=== PATIENT | male | born 1980 | race Caucasian/White ===

== ENCOUNTER 2017-03-25 12:12 | Emergency (ER) | payer OTHER ==
[~2017-03-25] VITALS: Ht 177.8 cm; Wt 86.2 kg
[2017-03-25] MEDS ORDERED: SODIUM CHLORIDE 0.9% 1,000 ML IVB ONE (13:03)
[2017-03-25] MEDS ORDERED: ASPirin 81 mg TAB PO ONE (13:15)
[2017-03-25 14:04] LABS: Basophils # (auto) 0.1 uL; Basophils % (auto) 0.6 % (0.0-2.0); Eosinophils # (auto) 0.3 uL; Eosinophils % (auto) 3.2 % (0.0-7.0); Hematocrit 42.2 % (41.0-53.0); Hemoglobin 14.6 g/dL (13.5-17.5); Lymphocytes # (auto) 2.5 uL; Mean Corpuscular Hemoglobin 31.2 pg (28.0-32.0); Mean Corpuscular Hgb Conc. 34.6 g/dL (32.0-36.0); Mean Corpuscular Volume 90.3 fL (80.0-100.0); Mean Platelet Volume 8.1 fL (7.4-10.4); Monocytes # (auto) 0.7 uL; Monocytes % (auto) 8.2 % (0.0-12.0); Neutrophils # (auto) 5.6 uL; Platelet Count (auto) 335 10^3/uL (140-450); Red Cell Distribution Width 12.6 % (11.6-16.0); White Blood Cell 9.1 10^3/uL (4.4-10.8)
[2017-03-25 14:07] LABS: Albumin 3.6 g/dL (3.4-5.0); Anion Gap 12 (5-15); Aspartate Aminotransferase 95 U/L (15-37); BUN/Creatinine Ratio 12.2; Blood Urea Nitrogen 11 mg/dL (7-18); Calcium 8.3 mg/dL (8.5-10.1); Carbon Dioxide 22 mmol/L (21-32); Chloride 103 mmol/L (98-107); GFR African American 121 mL/min; GFR Non-African American 100 mL/min; Glucose 97 mg/dL (74-106); Sodium 137 mmol/L (136-145)
[2017-03-25 14:12] LABS: Alkaline Phosphatase 42 U/L (45-117); Bilirubin, Total 0.7 mg/dL (0.2-1.0); Total Protein 7.7 g/dL (6.4-8.2)
[2017-03-25 14:59] VITALS: BP 123/63
== END 2017-03-25 17:26 | disposition home or self-care (01) ==
LOC: ER 12:14
DX: R07.89 Other chest pain (principal); M32.9 Systemic lupus erythematosus, unspecified; R74.8 Abnormal levels of other serum enzymes; F17.210 Nicotine dependence, cigarettes, uncomplicated; Z88.0 Allergy status to penicillin; Z87.01 Personal history of pneumonia (recurrent)
CPT/HCPCS: 36415; 71020; 80053; 83735; 84443; 84484; 85025; 85379; 93005; 94761; 96360; 96361

== ENCOUNTER 2020-08-16 06:21 | Emergency (ER) | payer OTHER ==
[~2020-08-16] VITALS: Ht 177.8 cm; Wt 86.2 kg
[~2020-08-16 06:21] MED LIST: HYDR-392 PO; LISI30TA4 PO
[2020-08-16 07:40] LABS: Urine Bacteria NONE SEEN /hpf (None Seen); Urine Blood 3+ /uL (Negative); Urine Mucus FEW (None Seen); Urine Specific Gravity 1.021 (1.001-1.035); Urine WBC 12 /hpf (0 - 3)
[2020-08-16 08:21] LABS: Potassium 3.9 mmol/L (3.5-5.1)
[2020-08-16 08:27] LABS: Albumin 4.2 g/dL (3.4-5.0); Basophils # (auto) 0.1 10 ^3/uL (0-0.2); Basophils % (auto) 0.4 % (0.0-2.0); Bilirubin, Total 0.8 mg/dL (0.2-1.0); Calcium 9.2 mg/dL (8.5-10.1); Eosinophils # (auto) 0.4 10 ^3/uL (0-0.8); Eosinophils % (auto) 2.9 % (0.0-7.0); Lymphocytes # (auto) 2.2 10 ^3/uL (0.4-5.4); Lymphocytes % (auto) 15.4 % (10.0-50.0); Mean Corpuscular Hemoglobin 29.2 pg (28.0-32.0); Mean Corpuscular Volume 85.9 fL (80.0-100.0); Monocytes # (auto) 1.2 10 ^3/uL (0-1.3); Monocytes % (auto) 8.7 % (0.0-12.0); Neutrophils # (auto) 10.4 10 ^3/uL (1.6-8.6); Neutrophils % (auto) 72.6 % (37.0-80.0); Nucleated Red Blood Cells % 0.2 %; Platelet Count (auto) 319 10^3/uL (140-450); Red Blood Cells 5.47 10^6/uL (4.5-5.90); Total Protein 8.1 g/dL (6.4-8.2); White Blood Cell 14.4 10^3/uL (4.4-10.8)
[2020-08-16 10:38] VITALS: BP 130/88
[2020-08-16] MEDS ORDERED: TAMSULOSIN HYDROCHLORIDE 0.4 MG CAP PO ONE (11:00)
[2020-08-16] MEDS ORDERED: KETOROLAC TROMETH 30 MG/ML 1ML VIAL IV ONE (11:00)
[2020-08-16] MEDS ORDERED: SODIUM CHLORIDE 0.9% 1,000 ML IV ONE ×2 (11:00)
== END 2020-08-16 12:05 | disposition home or self-care (01) ==
LOC: ER 06:21
DX: N20.0 Calculus of kidney (principal); N39.0 Urinary tract infection, site not specified; I10 Essential (primary) hypertension
CPT/HCPCS: 36415; 74176; 80053; 81001; 83690; 85025; 96360; 99285; J7030

== ENCOUNTER 2021-10-12 13:56 | Emergency (ER) | payer OTHER ==
[~2021-10-12] VITALS: Ht 175.3 cm; Wt 73.9 kg
[2021-10-12 14:11] VITALS: BP 168/87
== END 2021-10-12 15:57 | disposition left against medical advice (07) ==
LOC: ER 13:56
DX: R10.9 Unspecified abdominal pain (principal); R19.7 Diarrhea, unspecified; Z53.21 Procedure and treatment not carried out due to patient leaving prior to being seen by health care provider

== ENCOUNTER 2021-11-30 21:20 | Emergency (ER) | payer OTHER ==
[~2021-11-30] VITALS: Ht 170.2 cm; Wt 65.8 kg
[2021-11-30] MEDS ORDERED: LORazepam 2MG/ML-1ML VIAL ONE (22:01)
[2021-11-30] MEDS ORDERED: LORazepam 2MG/ML-1ML VIAL IV ONE (22:15)
[2021-11-30 22:23] LABS: Basophils # (auto) 0.1 10 ^3/uL (0-0.2); Basophils % (auto) 0.5 % (0.0-2.0); Eosinophils # (auto) 0.3 10 ^3/uL (0-0.8); Eosinophils % (auto) 2.4 % (0.0-7.0); Hematocrit 42.3 % (41.0-53.0); Hemoglobin 14.5 g/dL (13.5-17.5); Mean Corpuscular Hemoglobin 29.5 pg (28.0-32.0); Mean Corpuscular Hgb Conc. 34.1 g/dL (32.0-36.0); Mean Corpuscular Volume 86.3 fL (80.0-100.0); Monocytes # (auto) 1.3 10 ^3/uL (0-1.3); Monocytes % (auto) 10.1 % (0.0-12.0); Nucleated Red Blood Cells % 0.2 %; Red Blood Cells 4.91 10^6/uL (4.5-5.90); White Blood Cell 12.7 10^3/uL (4.4-10.8)
[2021-11-30 22:42] LABS: Albumin 3.9 g/dL (3.4-5.0); Calcium 8.9 mg/dL (8.5-10.1); Potassium 3.9 mmol/L (3.5-5.1)
[2021-11-30 22:45] LABS: BUN/Creatinine Ratio 10.6; Bilirubin, Total 2.2 mg/dL (0.2-1.0); Total Protein 7.3 g/dL (6.4-8.2)
[2021-12-01 06:46] VITALS: BP 105/65
== END 2021-12-01 07:29 | disposition home or self-care (01) ==
LOC: EDSEX 21:20 → EDBD 21:20 → ER 21:28
DX: G93.40 Encephalopathy, unspecified (principal); R41.82 Altered mental status, unspecified; I10 Essential (primary) hypertension; Z88.0 Allergy status to penicillin
CPT/HCPCS: 36415; 70450; 80053; 82962; 85025; 93005; 96374; 99285; J2060

== ENCOUNTER 2022-02-16 22:48 | Emergency (ER) | payer OTHER ==
[~2022-02-16] VITALS: Ht 175.3 cm; Wt 73.5 kg
[2022-02-16 22:49] VITALS: BP 116/80
[2022-02-17 00:11] LABS: Basophils # (auto) 0.1 10 ^3/uL (0-0.2); Basophils % (auto) 0.7 % (0.0-2.0); Eosinophils # (auto) 0.2 10 ^3/uL (0-0.8); Eosinophils % (auto) 1.7 % (0.0-7.0); Hematocrit 45.5 % (41.0-53.0); Lymphocytes # (auto) 3.1 10 ^3/uL (0.4-5.4); Lymphocytes % (auto) 23.6 % (10.0-50.0); Mean Corpuscular Hemoglobin 29.6 pg (28.0-32.0); Mean Corpuscular Hgb Conc. 35.1 g/dL (32.0-36.0); Mean Corpuscular Volume 84.2 fL (80.0-100.0); Monocytes # (auto) 1.5 10 ^3/uL (0-1.3); Monocytes % (auto) 11.2 % (0.0-12.0); Neutrophils # (auto) 8.3 10 ^3/uL (1.6-8.6); Neutrophils % (auto) 62.8 % (37.0-80.0); Red Blood Cells 5.41 10^6/uL (4.5-5.90); Red Cell Distribution Width 12.7 % (11.8-14.3); White Blood Cell 13.2 10^3/uL (4.4-10.8)
[2022-02-17 00:49] LABS: Albumin 4.4 g/dL (3.4-5.0); BUN/Creatinine Ratio 20.2; Calcium 9.6 mg/dL (8.5-10.1); Potassium 3.4 mmol/L (3.5-5.1)
[2022-02-17 00:52] LABS: Bilirubin, Total 2.5 mg/dL (0.2-1.0); Total Protein 8.2 g/dL (6.4-8.2)
== END 2022-02-17 04:12 | disposition left against medical advice (07) ==
LOC: ER 22:48
DX: R07.9 Chest pain, unspecified (principal); Z53.21 Procedure and treatment not carried out due to patient leaving prior to being seen by health care provider
CPT/HCPCS: 36415; 80053; 85025; 93005

== ENCOUNTER 2023-01-15 04:18 | Emergency (ER) | payer OTHER ==
[~2023-01-15] VITALS: Ht 175.3 cm; Wt 77.5 kg
[2023-01-15 04:20] VITALS: BP 142/89
[2023-01-15] MEDS ORDERED: diphenhdrAMINE HCL 50 MG/1 ML VL IM ONE (04:30)
[2023-01-15] MEDS ORDERED: DexAMETHasone SOD PHOS 10MG/1ML VIAL INJ IM ONE (04:30)
== END 2023-01-15 07:39 | disposition left against medical advice (07) ==
LOC: ER 04:21
DX: R07.9 Chest pain, unspecified (principal); Z53.21 Procedure and treatment not carried out due to patient leaving prior to being seen by health care provider
CPT/HCPCS: 93005; 96372; 99281; J1100; J1200

== ENCOUNTER 2024-11-23 14:06 | Emergency (ER) | payer OTHER ==
[~2024-11-23] VITALS: Ht 175.3 cm; Wt 85.0 kg
[~2024-11-23 14:06] MED LIST changes: +HYDR-4798 PO; -LISI30TA4 PO; +LISI30TA8 PO; +MAX35OO TOP
[2024-11-23] MEDS: KETOROLAC TROMETH 30 MG/ML 1ML VIAL IM ONE (14:45)
--- NOTE | 2024-11-23 14:46 | ED.PDOC ---
History of Present Illness HPI Comments 44-year-old male presents with a chief complaint of dog bite x 1 hour ago. Patient states that he is currently boarding his friends dog that has yet to come back and pick up driver the dog, when his mother was patting patient on the back patient states "the dog turned on me". Patient has puncture wounds to his left forearm and states that the dog latched on twice. Patient is reporting 10/10 pain at this time. Chief Complaint: Animal Bite Time Seen by MD: 14:36 Primary Care Provider: UNKNOWN Reviewed Notes: Medications, Allergies Allergies: Coded Allergies: Penicillins (Verified Allergy, Unknown, 03/25/17) Home Meds Active Scripts Uwebcmlt-Ekarzl-Metcgliz (Triple Antibiotic) 0.1 % Oin, 1 APPLIC TOP QPM, #3.5 GRAMS Prov:MARCIANO MICHAEL PAC 04/02/23 Hydrocodone-Acetaminophen (Hydrocodone Bitartrate/AC 10-325 mg) 1 Tab Tab, 1 TAB PO Q8HP PRN, #15 TAB Prov:MARCIANO MICHAEL PAC 04/02/23 Reported Medications Hydrocodone-Acetaminophen ([place] 7.5-325 mg) 1 Tab Tab, 1 TAB PO BIDP PRN for MODERATE PAIN, TAB 10/11/17 Lisinopril (Lisinopril) 30 Mg Tab, 1 TAB PO DAILY, #30 TAB 5 Refills 10/11/17 Information Source: Patient Mode of Arrival: Ambulatory Severity: Moderate Timing: Minutes Duration: Since onset Prehospital treatment: None Past Medical History PAST MEDICAL HISTORY: HTN Surgical History: Pt Confused Family History Family History: Pt Confused Social History Smoker: Pt Confused Alcohol: Pt Confused Drugs: Pt Confused Lives In: Pt Confused Constitutional: denies: chills, diaphoresis, fatigue, fever, malaise, sweats, weakness, others EENTM: denies: blurred vision, double vision, ear bleeding, ear discharge, ear drainage, ear pain, ear ringing, eye pain, eye redness, hearing loss, mouth pain, mouth swelling, nasal discharge, nose bleeding, nose congestion, nose pain, photophobia, tearing, throat pain, throat swelling, voice changes, others Respiratory: denies: cough, hemoptysis, orthopnea, SOB at rest, shortness of breath, SOB with excertion, stridor, wheezing, others Cardiovascular: denies: chest pain, dizzy spells, diaphoresis, Dyspnea on exertion, edema, irregular heart beat, left arm pain, lightheadedness, palpitations, PND, syncope, others Gastrointestinal: denies: abdomen distended, abdominal pain, blood streaked bowels, constipated, diarrhea, dysphagia, difficulty swallowing, hematemesis, melena, nausea, poor appetite, poor fluid intake, rectal bleeding, rectal pain, vomiting, others Genitourinary: denies: burning, dysuria, flank pain, frequency, hematuria, incontinence, penile discharge, penile sore, pain, testicle pain, testicle swelling, urgency, others Neurological: denies: dizziness, fainting, headache, left sided numbness, left sided weakness, numbness, paresthesia, pre-existing deficit, right sided numbness, right sided weakness, seizure, speech problems, tingling, tremors, weakness, others Musculoskeletal: denies: back pain, gout, joint pain, joint swelling, muscle pain, muscle stiffness, neck pain, others Integumetry: reports: wounds (DOG BITE LEFT FOREARM); denies: bruises, change in color, change in hair/nails, dryness, laceration, lesions, lumps, rash, others Allergic/Immunocompromised: denies: Difficulty Healing, Frequent Infections, Hives, Itching, others Hematologic/Lymphatic: denies: anemia, blood clots, easy bleeding, easy bruising, swollen glands, others Endocrine: denies: excessive hunger, excessive sweating, excessive thirst, excessive urination, flushing, intolerance to cold, intolerance to heat, unexplained weight gain, unexplained weight loss, others Psychiatric: denies: anxiety, bipolar disorder, depression, hopeless, panic disorder, schizophrenia, sleepless, suicidal, others All Other Systems: Reviewed and Negative Physical Exam General Appearance: No Apparent Distress, Normal HEENT: Normal ENT Inspection, Pharynx Normal, TMs Normal Neck: Full Range of Motion, Non-Tender, Normal, Normal Inspection Respiratory: Chest Non-Tender, Lungs Clear, No Accessory Muscle Use, No Respira tory Distress, Normal Breath Sounds Cardiovascular: No Edema, No JVD, No Murmur, No Gallop, Normal Peripheral Pulses, Regular Rate/Rhythm Breast Exam: Deferred Gastrointestinal: No Organomegaly, Non Tender, No Pulsatile Mass, Normal Bowel Sounds, Soft Genitalia: Deferred Pelvic: Deferred Rectal: Deferred Extremities: No calf tenderness, Normal capillary refill, Normal inspection, Normal range of motion, Non-tender, No pedal edema Musculoskeletal : Apperance: Normal Neurologic: Alert, 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 Was a procedure done?: No Differential Dx Considerations may include: Infection, trauma for man and white, tendon injury, muscle injury X-Ray, Labs, Meds, VS Vital Signs Date Time Temp Pulse Resp B/P (MAP) Pulse Ox O2 Delivery O2 Flow Rate FiO2 11/23/24 14:30 84 13 149/79 (102) 95 11/23/24 14:16 97.8 111 15 110/92 (98) 100 Current Medications Medications (Trade) Dose Ordered Sig/Mirna Route Start Time Stop Time Status Last Admin Ketorolac Tromethamine (Toradol Injection) 15 mg ONCE ONCE IM 11/23/24 14:45 11/23/24 14:46 DC 11/23/24 14:45 Time of 1ST Reevaluation: 15:06 Reevaluation 1ST: Unchanged Patient Education/Counseling: Diagnosis, Treatment, Prognosis Family Education/Counseling: Diagnosis, Treatment, Prognosis Departure 1 Departure Time of Disposition: 16:23 (Patient has a extensive vancomycin his arms and possible tendon injury we will empirically cover patient with antibiotics and admit for orthopedic consultation.) Impression: Primary Impression: Dog bite of arm Qualified Codes: S41.152A - Open bite of left upper arm, initial encounter; W54.0XXA - Bitten by dog, initial encounter Additional Impression: Left hand weakness Disposition: ADMITTED INPATIENT Admit to: Med Surg Condition: Serious Critical Care Note Critical Care Time?: No I personally scribed for ZOE SIERRA MD ([email or web address]) on 11/23/24 at 14:46. Electronically submitted by Vega Prescott ([email or web address]). ZOE SIERRA MD Nov 23, 2024 14:46
--- NOTE | 2024-11-23 15:27 | DVH ---
CLINICAL INDICATION: animal bite TECHNIQUE: XY L FOREARM XRAY Comparison: None FINDINGS/IMPRESSION: : There is no evidence of acute fracture or dislocation. Soft tissues are unremarkable. No appreciable radiopaque foreign body.
[2024-11-23] MEDS: SODIUM CHLORIDE 0.9% 1,000 ML IV ONE (17:00)
[2024-11-23] MEDS: ONDANSETRON HCL 4 MG/2 ML VIAL IV ONE ×2 (17:04→20:28)
[2024-11-23] MEDS: MORPHINE SULFATE 4 MG/ML SYR/VIAL IV ONE ×2 (17:05→20:29)
[2024-11-23] MEDS: CEFEPIME 2GM/50ML NS 50 ML IV ONE (17:12)
[2024-11-23 17:17] LABS: Basophils # (auto) 0 10 ^3/uL (0-0.2); Basophils % (auto) 0.3 % (0.0-2.0); Eosinophils # (auto) 0.1 10 ^3/uL (0-0.8); Eosinophils % (auto) 0.7 % (0.0-7.0); Hematocrit 44.6 % (41.0-53.0); Hemoglobin 15.5 g/dL (13.5-17.5); Lymphocytes # (auto) 1.1 10 ^3/uL (0.4-5.4); Lymphocytes % (auto) 7.7 % (10.0-50.0); Mean Corpuscular Hgb Conc. 34.7 g/dL (32.0-36.0); Mean Corpuscular Volume 89.1 fL (80.0-100.0); Monocytes # (auto) 0.8 10 ^3/uL (0-1.3); Monocytes % (auto) 5.6 % (0.0-12.0); Neutrophils # (auto) 12.3 10 ^3/uL (1.6-8.6); Neutrophils % (auto) 85.7 % (37.0-80.0); Platelet Count (auto) 234 10^3/uL (140-450); Red Cell Distribution Width 13.3 % (11.8-14.3); White Blood Cell 14.3 10^3/uL (4.4-10.8)
[2024-11-23 17:21] LABS: Anion Gap 9 (5-15); Carbon Dioxide 24 mmol/L (20-31); Chloride 104 mmol/L (98-107); Potassium 3.9 mmol/L (3.5-5.1); Sodium 137 mmol/L (136-145)
[2024-11-23 17:22] LABS: Calcium 9.6 mg/dL (8.7-10.4)
[2024-11-23 17:27] LABS: BUN/Creatinine Ratio 13.4 (10.0-20.0); Blood Urea Nitrogen 11 mg/dL (9-23); Glucose 105 mg/dL (74-106)
[2024-11-23 20:09] VITALS: PULSE 89; RESP 19; O2SAT 97
[2024-11-23] MEDS: VANCOMYCIN 1GM/250ML KIT 200 ML IV ONE (20:22)
--- NOTE | 2024-11-23 21:22 | DVH ---
CLINICAL INDICATION: animal bite TECHNIQUE: radiographic views of the were obtained. Comparison: None FINDINGS/IMPRESSION: No oseous or joint abnormality with no fracture or dislocation.
--- NOTE | 2024-11-23 22:36 | PRN ---
Misceleneous Note Note Note Patient was previously cared for by Dr. Ward. Dr. Cline hospitalist recommends transfer to facility with hand surgery available for possible tendon laceration. Patient seen and examined. Multiple puncture wounds of left forearm noted. Patient is able to flex all 5 fingers with no weakness. Sensation of hand and fingers intact. There is weakness of extension of 4th and 5th digits. Discussed with Dr. Moeller, orthopedics. He states he does not perform tendon repairs however procedure is not emergenct and can be done within the next 2 weeks. Discussed with patient option for admission at this facility with no surgical procedure or transfer to facility with hand surgeon availability. Discussed that surgery or tendon repair is not guaranteed. Patient would like to be transferred. 22:[address] Casarez ER physician at [facility] request for transfer for hand specialist. He recommends I speak to hand specialist directly. 23:[address] Vazquez hand specialist at [facility]. He states transfer is not necessary at this time as tendon repairs for dog bites are not done emergently. Patient can follow up in his office as an outpatient. [phone]. DIDIER ENNIS MD Nov 23, 2024 22:36
[2024-11-24] MEDS: MORPHINE SULFATE INJ 2 MG/ml SYRG IV ONE (00:28)
[2024-11-24] MEDS: KETOROLAC TROMETH 30 MG/ML 1ML VIAL IV ONE ×3 (00:29→17:05)
--- NOTE | 2024-11-24 01:36 | DVHINCON2 ---
Date Seen: Nov 23, [address] Sierra/Earle Reason for Consultation Left forearm wound History of Present Illness 44-year-old male presents for evaluation of left forearm wound. Patient reports being bitten by a pit bull on multiple occasion on his left forearm today 11/23/2024. Patient presents with multiple wounds that are currently open and oozing. He also reports numbness to the dorsum and palm area of left hand. Patient's left small finger is flexed and he is unable to extended. Reports excruciating pain to forearm. No other complaints reported. Past Medical History Hypertension Past Surgical History Denies Family History: Arthritis G8 MOTHER Diabetes mellitus G8 FATHER FH: blindness G8 FATHER FH: kidney failure G8 FATHER Osteoporosis G8 MOTHER Allergies: Coded Allergies: Penicillins (Verified Allergy, Unknown, 03/25/17) Home Meds Active Scripts Rgjgirsl-Gmjkso-Ewnzmvoq (Triple Antibiotic) 0.1 % Oin, 1 APPLIC TOP QPM, #3.5 GRAMS Prov:MARCIANO MICHAEL PAC 04/02/23 Hydrocodone-Acetaminophen (Hydrocodone Bitartrate/AC 10-325 mg) 1 Tab Tab, 1 TAB PO Q8HP PRN, #15 TAB Prov:MARCIANO MICHAEL PAC 04/02/23 Reported Medications Hydrocodone-Acetaminophen ([place] 7.5-325 mg) 1 Tab Tab, 1 TAB PO BIDP PRN for MODERATE PAIN, TAB 10/11/17 Lisinopril (Lisinopril) 30 Mg Tab, 1 TAB PO DAILY, #30 TAB 5 Refills 10/11/17 Review of Systems Review of systems are currently negative otherwise addressed in HPI. Vital Signs Vital Signs Date Time Temp Pulse Resp B/P (MAP) Pulse Ox O2 Delivery O2 Flow Rate FiO2 11/24/24 00:58 79 16 127/82 11/24/24 00:00 98.5 99 98.5 11/23/24 20:09 Room Air* 0 21 Physical Exam Gen: 44-year-old male in mild distress Skin: Warm, dry, normal color and texture, no rash. HEENT: Normocephalic atraumatic, mucous membranes moist and pink. Neck: Cervical and supraclavicular nodes normal without enlargement, trachea is midline, thyroid gland is normal without masses. Pulmonary: Clear to auscultation and percussion bilaterally. Cardiac: Regular rate and rhythm. No murmur Abdomen: Soft, nontender, nondistended, bowel sounds present all 4 quadrants, no guarding, no rigidity, no organomegaly. Extremities: No cyanosis, clubbing, left forearm with multiple open wounds with fat tissue exposed and oozing, Neuro: Cranial nerves II through XII grossly intact, normal affect and speech, left small finger in flexed position unable to extend, numbness to dorsum and palm region of left hand Labs/Diagnostic Data ORDERING PHYSICIAN: ZOE SIERRA MD PROCEDURE(s): LFOR - L FOREARM XRAY REASON: animal bite ORDER NUMBER(s): [id number], ACCESSION NUMBER(s): [id number] CLINICAL INDICATION: animal bite TECHNIQUE: XY L FOREARM XRAY Comparison: None FINDINGS/IMPRESSION: : There is no evidence of acute fracture or dislocation. Soft tissues are unremarkable. No appreciable radiopaque foreign body. RING PHYSICIAN: ZOE SIERRA MD PROCEDURE(s): LHAN - L HAND 3V XRAY REASON: animal bite ORDER NUMBER(s): [id number], ACCESSION NUMBER(s): [id number] CLINICAL INDICATION: animal bite TECHNIQUE: radiographic views of the were obtained. Comparison: None FINDINGS/IMPRESSION: No oseous or joint abnormality with no fracture or dislocation. Labs Test 11/24/24 00:42 11/23/24 17:03 Range/Units Hemoglobin 14.5 13.5-17.5 g/dL White Blood Count 14.3 H 4.4-10.8 10^3/uL Red Blood Count 5.00 4.5-5.90 10^6/uL Hematocrit 44.6 41.0-53.0 % Mean Corpuscular Volume 89.1 80.0-100.0 fL Mean Corpuscular Hemoglobin 31.0 28.0-32.0 pg Mean Corpuscular Hemoglobin Concent 34.7 32.0-36.0 g/dL Red Cell Distribution Width 13.3 11.8-14.3 % Platelet Count 234 140-450 10^3/uL Mean Platelet Volume 7.5 6.9-10.8 fL Neutrophils (%) (Auto) 85.7 H 37.0-80.0 % Lymphocytes (%) (Auto) 7.7 L 10.0-50.0 % Monocytes (%) (Auto) 5.6 0.0-12.0 % Eosinophils (%) (Auto) 0.7 0.0-7.0 % Basophils (%) (Auto) 0.3 0.0-2.0 % Neutrophils # (Auto) 12.3 H 1.6-8.6 10 ^3/uL Lymphocytes # (Auto) 1.1 0.4-5.4 10 ^3/uL Monocytes # (Auto) 0.8 0-1.3 10 ^3/uL Eosinophils # (Auto) 0.1 0-0.8 10 ^3/uL Basophils # (Auto) 0 0-0.2 10 ^3/uL Nucleated Red Blood Cells 0.0 % Sodium Level 137 136-145 mmol/L Potassium Level 3.9 3.5-5.1 mmol/L Chloride Level 104 98-107 mmol/L Carbon Dioxide Level 24 20-31 mmol/L Anion Gap 9 5-15 Blood Urea Nitrogen 11 9-23 mg/dL Creatinine 0.82 0.700-1.30 mg/dL Glomerular Filtration Rate Calc 110 >90 mL/min BUN/Creatinine Ratio 13.4 10.0-20.0 Serum Glucose 105 74-106 mg/dL Calcium Level 9.6 8.7-10.4 mg/dL Assessment Left forearm dog bite Multiple open wounds to left forearm Left hand numbness Plan/Recommendation Advised ER provider Dr. Og to transfer patient for higher level of care due to possible nerve/tendon. Plan discussed with: Patient Date of Service: Nov 23, 2024 Billing Provider: KVNG LAMB Common Visit Codes: CONSULT ONLY KVNG LAMB Nov 24, 2024 01:36
[2024-11-24] MEDS: MORPHINE SULFATE 4 MG/ML SYR/VIAL IV ONE ×2 (06:27→10:23)
[2024-11-24] MEDS: ONDANSETRON HCL 4 MG/2 ML VIAL IV ONE (06:27)
[2024-11-24 08:00] VITALS: PULSE 72; RESP 20; TEMP 99; O2SAT 92
--- NOTE | 2024-11-24 10:34 | DVH ---
INDICATION: Dog bite COMPARISON: Radiographs of the left hand performed on 11/23/2024 TECHNIQUE: CT of the left arm was performed with 100 mL Omnipaque 300 intravenous contrast. Coronal a nd sagittal reformatted images are submitted. CONTRAST: None Radiation Dose Information: CTDI volume is 30.2 mGy. Dose-length product is 1679 mGy*cm FINDINGS: There is extensive soft tissue swelling in the distal forearm and extensive deep soft tissue gas in b etween the flexor and extensor muscles in the subcutaneous tissues. There is intramuscular edema in t he distal forearm down to the wrist. There is no fluid collection. Normal vascular enhancement and no findings to suggest vascular injury. The bones are unremarkable. No evidence of fracture. No evidence of cortical destruction or perioste al reaction. Joint spaces are maintained. IMPRESSION: 1. Diffuse soft tissue, both intramuscular and subcutaneous swelling in the distal left forearm, with subcutaneous and deep soft tissue gas, in keeping with history of dog bite. No fluid collection. 2. No CT evidence of osteomyelitis. All CT scans at this medical facility are performed using dose modulation techniques as appropriate t o a performed exam including the following: Automated exposure control was utilized; adjustment of th e MA and/or KV according to patient size; and use of iterative reconstruction technique.
[2024-11-24] MEDS: IOHEXOL 300 MG/ML 100ML BOTTLE IJ ONE (12:21)
--- NOTE | 2024-11-24 12:52 | DVHINCON2 ---
Date of service: Nov 24, 2024 Reason for Consultation Left forearm dog bite History of Present Illness Mr. Cheng is a 44 year old male who came into the emergency room due to a operative 44-year-old male presents for evaluation of left forearm wound. Patient reports being bitten by a pit bull on multiple occasion on his left forearm today 11/23/2024. Patient presents with multiple wounds that are currently open and oozing. He also reports numbness to the dorsum and palm area of left hand. Patient's left small finger is flexed and he is unable to extended. Reports excruciating pain to forearm. No other complaints reported. Past Medical History Hypertension Past Surgical History Denies Family History: Arthritis G8 MOTHER Diabetes mellitus G8 FATHER FH: blindness G8 FATHER FH: kidney failure G8 FATHER Osteoporosis G8 MOTHER Family History Noncontributory Social History Patient denies smoking, EtOH, or illicit substance abuse Allergies: Coded Allergies: Penicillins (Verified Allergy, Unknown, 03/25/17) Home Meds Active Scripts Ttxpxsjd-Wbacwe-Yohjpxcd (Triple Antibiotic) 0.1 % Oin, 1 APPLIC TOP QPM, #3.5 GRAMS Prov:MARCIANO MICHAEL PAC 04/02/23 Hydrocodone-Acetaminophen (Hydrocodone Bitartrate/AC 10-325 mg) 1 Tab Tab, 1 TAB PO Q8HP PRN, #15 TAB Prov:MARCIANO MICHAEL PAC 04/02/23 Reported Medications Hydrocodone-Acetaminophen ([place] 7.5-325 mg) 1 Tab Tab, 1 TAB PO BIDP PRN for MODERATE PAIN, TAB 10/11/17 Lisinopril (Lisinopril) 30 Mg Tab, 1 TAB PO DAILY, #30 TAB 5 Refills 10/11/17 Review of Systems 10 point review of systems negative except as per HPI Vital Signs Vital Signs Date Time Temp Pulse Resp B/P (MAP) Pulse Ox O2 Delivery O2 Flow Rate FiO2 11/24/24 10:23 71 16 100/50 11/24/24 10:15 93 11/24/24 08:00 Room Air* 0 21 11/24/24 08:00 99.0 99.0 Physical Exam General appearance: A&O x4 in no acute distress HEENT: Normal ENT inspection, pharynx normal, TMs normal Neck: Full range of motion, nontender, normal inspection Respiratory: Chest nontender, without accessory muscle use, no respiratory distress Cardiovascular: No edema, no JVD, normal peripheral pulses Gastrointestinal: Soft, nontender, no organomegaly. Musculoskeletal: Left wrist and hand range of motion grossly limited with pain on movement, normal capillary refill, no pedal edema, with numbness throughout the entire left hand. Skin: Dry, normal color, warm Lymphatic: No adenopathy Labs/Diagnostic Data Labs Test 11/24/24 00:42 11/23/24 17:03 Range/Units Hemoglobin 14.5 13.5-17.5 g/dL White Blood Count 14.3 H 4.4-10.8 10^3/uL Red Blood Count 5.00 4.5-5.90 10^6/uL Hematocrit 44.6 41.0-53.0 % Mean Corpuscular Volume 89.1 80.0-100.0 fL Mean Corpuscular Hemoglobin 31.0 28.0-32.0 pg Mean Corpuscular Hemoglobin Concent 34.7 32.0-36.0 g/dL Red Cell Distribution Width 13.3 11.8-14.3 % Platelet Count 234 140-450 10^3/uL Mean Platelet Volume 7.5 6.9-10.8 fL Neutrophils (%) (Auto) 85.7 H 37.0-80.0 % Lymphocytes (%) (Auto) 7.7 L 10.0-50.0 % Monocytes (%) (Auto) 5.6 0.0-12.0 % Eosinophils (%) (Auto) 0.7 0.0-7.0 % Basophils (%) (Auto) 0.3 0.0-2.0 % Neutrophils # (Auto) 12.3 H 1.6-8.6 10 ^3/uL Lymphocytes # (Auto) 1.1 0.4-5.4 10 ^3/uL Monocytes # (Auto) 0.8 0-1.3 10 ^3/uL Eosinophils # (Auto) 0.1 0-0.8 10 ^3/uL Basophils # (Auto) 0 0-0.2 10 ^3/uL Nucleated Red Blood Cells 0.0 % Sodium Level 137 136-145 mmol/L Potassium Level 3.9 3.5-5.1 mmol/L Chloride Level 104 98-107 mmol/L Carbon Dioxide Level 24 20-31 mmol/L Anion Gap 9 5-15 Blood Urea Nitrogen 11 9-23 mg/dL Creatinine 0.82 0.700-1.30 mg/dL Glomerular Filtration Rate Calc 110 >90 mL/min BUN/Creatinine Ratio 13.4 10.0-20.0 Serum Glucose 105 74-106 mg/dL Calcium Level 9.6 8.7-10.4 mg/dL Left upper extremity CT scan reviewed and demonstrated: 1. Diffuse soft tissue, both intramuscular and subcutaneous swelling in the distal left forearm, with subcutaneous and deep soft tissue gas, in keeping with history of dog bite. No fluid collection. 2. No CT evidence of osteomyelitis. Assessment Left forearm cellulitis Plan/Recommendation I had a lengthy discussion with the patient and after discussing his case and reviewing his imaging studies with Dr. Greenwood we have recommended continuing with antibiotics and observation, patient reports that he was told that he was going to be transferred earlier today due to concerns of an infection to his tendon and requested he be transferred to [facility]. We recommend continuing with IV antibiotics in the meantime and pain control and can follow up with our office in 2-3 days for further evaluation and treatment. Please contact ortho for any further questions or concerns. Thank you for allowing us to participate in the care of your patient. Plan discussed with: Patient BEA SALAZAR Nov 24, 2024 12:52
[2024-11-24] MEDS: HYDROmorphone HCL 2 MG TAB PO ONE (15:20)
[2024-11-24] MEDS: CEFEPIME 1GM/ 50ML 50 ML IV ONE (15:41)
[2024-11-24 17:00] VITALS: BP 115/61; PULSE 69; RESP 16; O2SAT 98
[2024-11-24] MEDS ORDERED: DOXY-286 PO (17:00)
[2024-11-24] MEDS ORDERED: HYDR-4902 PO (17:00)
[2024-11-24] MEDS ORDERED: LEVO500T91 PO (17:00)
--- NOTE | 2024-11-24 17:02 | ED.PDOC ---
Departure 1 Departure Time of Disposition: 16:57 (Patient was up for admission for over 24 hours. For reasons unclear to me patient was not admitted however patient did have multiple orthopedic consults, received IV antibiotics, analgesia, and expert nursing care. Orthopedics after this extensive evaluation and treatment has now cleared patient for discharge home with outpatient antibiotics and follow up in their clinic in 3 days. ) Impression: Primary Impression: Dog bite of arm Qualified Codes: S41.152A - Open bite of left upper arm, initial encounter; W54.0XXA - Bitten by dog, initial encounter Additional Impression: Left hand weakness Disposition: HOME / SELF CARE / HOMELESS Condition: Fair Referrals: LATRELL AYALA MD Additional Instructions: You were prescribed antibiotics. Please take as directed. You need to follow up with our orthopedic surgeon. Please call for an appointment. For pain you can take the followinam: Ibuprofen 400mg with food Noon: Acetaminophen 1000mg 4pm: Ibuprofen 400mg with food 8pm: Acetaminophen 1000mg You should follow up with your regular doctor within one week to ensure you are doing better. If your symptoms worsen or you have any other concerns then please return to the ER. e-Prescriptions Doxycycline Hyclate (DOXYCYCLINE HYCLATE) 100 Mg Tab 1 TAB PO BID for 5 Days, #10 TAB Prov: ZOE SIERRA MD 11/24/24 Levofloxacin Hemihydrate (LEVAQUIN 500 MG) 500 Mg Tab 500 MG PO DAILY for 5 Days, #5 TAB Prov: ZOE SIERRA MD 11/24/24 Hydrocodone-Acetaminophen (Hydrocodone Bitartrate/AC 5-325 mg) 1 Tab Tab 1 TAB PO QID PRN for 4 Days, #16 TAB Prov: ZOE SIERRA MD 11/24/24 Discharged With: Self ZOE SIERRA MD Nov 24, 2024 17:02
[2024-11-24] MEDS ORDERED: PERCOT PO (17:52)
[2024-11-24] MEDS ORDERED: CEFEPIME 1GM/ 50ML 50 ML IV SCH (22:00)
== END 2024-11-24 17:52 | disposition home or self-care (01) ==
LOC: ER 14:06
DX: S51.852A Open bite of left forearm, initial encounter (principal); I10 Essential (primary) hypertension; Z79.899 Other long term (current) drug therapy; Z88.0 Allergy status to penicillin; W54.0XXA Bitten by dog, initial encounter; Y93.89 Activity, other specified; Y92.89 Other specified places as the place of occurrence of the external cause; Y99.8 Other external cause status
CPT/HCPCS: 36415; 73090; 73130; 80048; 85018; 85025; 96365; 96366; 96367; 96372; 96375; 96376; 99285; J0692; J1885; J2270; J2405; J3370; J7030; Q9967